=== PATIENT | female | born 1945 | race Hispanic/Latino ===

== ENCOUNTER 2021-10-23 10:08 | Emergency (ER) | payer OTHER ==
--- NOTE | 2021-10-23 11:26 | RAD REPORT ---
EXAM DESCRIPTION: CT - Head C Spine Mpr Wo Con - 10/23/2021 10:49 am CLINICAL HISTORY: Head and neck injury status post fall. Head and neck pain COMPARISON: None. TECHNIQUE: Computed axial tomography of the head and cervical spine was obtained. Sagittal and coronal reconstruction was performed. All CT scans are performed using dose optimization technique as appropriate and may include automated exposure control or mA/KV adjustment according to patient size. FINDINGS: An intracranial bleed is not seen. Mild low-density within periventricular, deep and subcortical white matter probably ischemic changes secondary to small vessel disease The ventricles are normal in caliber. An extra-axial fluid collection is not noted.Fluid within the v isualized sinuses and mastoids is not seen A cervical fracture is not visualized. No dislocation is noted. A minimal anterior subluxation C4 on C5. No soft tissue swelling seen. Mild compression fracture T2 vertebral body. A definite fracture line is not seen. IMPRESSION: No acute intracranial abnormality is seen. A cervical fracture is not visualized. Mild compression fracture T2 vertebral body probably is either subacute or chronic. If clinically ind icated further evaluation with MRI could be obtained.
--- NOTE | 2021-10-23 12:04 | EDPHYS ---
Physician Documentation [facility] Name: Ofe Brasher Age: 76 yrs Sex: Female : 1945 Arrival Date: 10/23/2021 Time: 10:13 Bed 17 Private MD: ED Physician Marcelo Mccloud HPI: 10/23 10:31 This 76 yrs old Female presents to ER via EMS with complaints of Fall Injury. jmm 10:31 Details of fall: The patient fell from an upright position. Onset: The symptoms/episode jmm began/occurred acutely, just prior to arrival. Associated injuries: The patient sustained injury to the head. It is unknown whether or not the patient has had similar symptoms in the past. Historical: - Allergies: 10:16 No Known Allergies; bp - PMHx: 10:16 Diabetes mellitus; Dementia; bp - Immunization history:: Adult Immunizations up to date. - Social history:: Smoking status: Patient denies any tobacco usage or history of. ROS: 10:31 Constitutional: Negative for fever, chills, and weight loss, Cardiovascular: Negative jmm for chest pain, palpitations, and edema, Respiratory: Negative for shortness of breath, cough, wheezing, and pleuritic chest pain. 10:31 Neuro: Positive for headache. 10:31 All other systems are negative. Exam: 10:31 Constitutional: This is a well developed, well nourished patient who is awake, alert, jmm and in no acute distress. 10:31 Eyes: EOMI, no conjunctival erythema appreciated ENT: Moist Mucus Membranes Neck: Trachea midline, Supple Chest/axilla: Normal chest wall appearance and motion. Cardiovascular: Regular rate and rhythm. No edema appreciated Respiratory: Normal respirations, no respiratory distress appreciated Abdomen/GI: Non distended Back: Normal ROM 10:31 Head/face: 1 cm laceration noted to the posterior scalp. 10:31 Skin: 1 cm laceration noted to the posterior scalp. 10:31 Neuro: Orientation: is normal, Mentation: is normal, Memory: is normal. 10:31 Psych: Behavior/mood is pleasant, cooperative. Vital Signs: 10:15 BP 150 / 70; Pulse 65; Resp 17; Temp 98; Pulse Ox 97% ; bp 10:54 BP 129 / 61; Pulse 74; Resp 16; Pulse Ox 100% ; bp 12:24 BP 134 / 72; Pulse 80; Resp 16; Pulse Ox 100% ; bp Laceration: 12:00 Wound Repair of 1cm ( 0.4in ) subcutaneous laceration to scalp. Distal jmm neuro/vascular/tendon intact. Anesthesia: Local anesthetic administered with 1% lidocaine. Wound prep: Simple cleansing by nurse. Skin closed with 2 1-0 Prolene using staple gun. MDM: 10:31 Patient medically screened. [facility] 12:00 Data reviewed: vital signs, nurses notes. [facility] 12:00 Counseling: I had a detailed discussion with the patient and/or guardian regarding: the [facility] historical points, exam findings, and any diagnostic results supporting the discharge/admit diagnosis, radiology results, the need for outpatient follow up, to return to the emergency department if symptoms worsen or persist or if there are any questions or concerns that arise at home. 10/23 10:34 Order name: CT Head C Spine; Complete Time: 11:27 [facility] 10/23 10:34 Order name: Wound Care; Complete Time: 12:24 [facility] Administered Medications: No medications were administered Disposition: 12:41 Co-signature as Attending Physician, Marcelo Mccloud MD I agree with the assessment and kdr plan of care. Disposition Summary: 10/23/21 12:04 Discharge Ordered Location: Home [facility] Condition: Stable [facility] Diagnosis - Fall on same level, unspecified jmm - Fracture of thoracic vertebra jmm - Unspecified injury of head, initial encounter jmm - Laceration without foreign body of scalp [facility] Followup: [facility] - With: Private Physician - When: 2 - 3 days - Reason: Recheck today's complaints, Continuance of care, Re-evaluation by your physician Discharge Instructions: - Discharge Summary Sheet jmm - Thoracic Spine Fracture jmm - Head Injury, Adult jmm - Facial Laceration [facility] Forms: - Medication Reconciliation Form jm - Thank You Letter jmm - Antibiotic Education jmm - Prescription Opioid Use [facility] Signatures: Dispatcher [employer] EDMarcelo Nicolas MD MD kdr Mickail, Joel, PA PA jmm Peltier, Brian, RN RN bp Corrections: (The following items were deleted from the chart) 10:17 10:16 Allergies: Tetanus Vaccines \T\ Toxoid; bp bp
--- NOTE | 2021-10-23 12:04 | ER ---
Nurse's Notes [facility] Name: Ofe Brasher Age: 76 yrs Sex: Female : 1945 Arrival Date: 10/23/2021 Time: 10:13 Bed 17 Private MD: Diagnosis: Fall on same level, unspecified;Fracture of thoracic vertebra;Unspecified injury of head, initial encounter;Laceration without foreign body of scalp Presentation: 10/23 10:15 Chief complaint: EMS states: SLIP AND FALL GOING TO BATHROOM AT HOME, NO LOC OR BLOOD bp THINNERS, 1 INCH LAC TO OCCIPUT. Coronavirus screen: At this time, the client does not indicate any symptoms associated with coronavirus-19. Ebola Screen: No symptoms or risks identified at this time. Initial Sepsis Screen: Does the patient meet any 2 criteria? No. Patient's initial sepsis screen is negative. Does the patient have a suspected source of infection? No. Patient's initial sepsis screen is negative. Risk Assessment: Do you want to hurt yourself or someone else? Patient reports no desire to harm self or others. Onset of symptoms was October 23, 2021 at 09:30. Care prior to arrival: Glucose check: 132. 10:15 Method Of Arrival: EMS: [facility] bp 10:15 Acuity: EBEN 3 bp Triage Assessment: 10:16 General: Appears in no apparent distress. comfortable, Behavior is calm, cooperative. bp Pain: Complains of pain in scalp. EENT: No deficits noted. Neuro: Level of Consciousness is awake, alert, obeys commands, Oriented to person, place, situation. Cardiovascular: No deficits noted. Respiratory: No deficits noted. GI: No signs and/or symptoms were reported involving the gastrointestinal system. : No signs and/or symptoms were reported regarding the genitourinary system. Derm: No deficits noted. Musculoskeletal: No deficits noted. Injury Description: Laceration sustained to scalp. Historical: - Allergies: 10:16 No Known Allergies; bp - PMHx: 10:16 Diabetes mellitus; Dementia; bp - Immunization history:: Adult Immunizations up to date. - Social history:: Smoking status: Patient denies any tobacco usage or history of. Screenin:17 Abuse screen: Denies threats or abuse. Denies injuries from another. Nutritional bp screening: No deficits noted. Tuberculosis screening: No symptoms or risk factors identified. Fall Risk None identified. Assessment: 10:17 General: SEE TRIAGE NOTE. bp 10:55 Reassessment: PT RETURNED FROM CT. bp 12:24 Reassessment: PT D/C HOME VIA W/C. bp Vital Signs: 10:15 BP 150 / 70; Pulse 65; Resp 17; Temp 98; Pulse Ox 97% ; bp 10:54 BP 129 / 61; Pulse 74; Resp 16; Pulse Ox 100% ; bp 12:24 BP 134 / 72; Pulse 80; Resp 16; Pulse Ox 100% ; bp ED Course: 10:13 Patient arrived in ED. bp 10:16 Triage completed. bp 10:16 Arm band placed on. bp 10:17 Patient has correct armband on for positive identification. Bed in low position. Call bp light in reach. Side rails up X2. Adult w/ patient. 10:20 Esau Clancy PA is PHCP. jade 10:20 Marcelo Mccloud MD is Attending Physician. jade 10:35 Joseph Mejia, MARLEY is Primary Nurse. bp 10:51 CT Head C Spine In Process Unspecified. EDMS 12:24 Assist provider with laceration repair on scalp that was 2.5 cm. or less using sohail. bp Performed by Esau NEWBERRY Dressed with Neosporin. Patient did not have IV access during this emergency room visit. Administered Medications: No medications were administered Medication: 10:17 VIS not applicable for this client. bp Outcome: 12:04 Discharge ordered by . jmm 12:24 Discharged to home via wheelchair, with family. bp 12:24 Condition: stable 12:24 Discharge instructions given to patient, family, Instructed on discharge instructions, follow up and referral plans. wound care, Demonstrated understanding of instructions, follow-up care, wound care. 12:25 Patient left the ED. bp Signatures: Dispatcher [employer] EDMS Esau Clancy PA PA jmm Peltier, Brian, RN RN bp Corrections: (The following items were deleted from the chart) 10:17 10:16 Allergies: Tetanus Vaccines \T\ Toxoid; bp bp
== END 2021-10-23 12:25 | disposition home or self-care (01) ==
LOC: ER 10:08
PROC: 0JQ00ZZ Repair Scalp Subcutaneous Tissue and Fascia, Open Approach (ICD-10-PCS; principal; 2021-10-23)
DX: S01.01XA Laceration without foreign body of scalp, initial encounter (principal); S22.029A Unspecified fracture of second thoracic vertebra, initial encounter for closed fracture; S09.90XA Unspecified injury of head, initial encounter; W18.30XA Fall on same level, unspecified, initial encounter; E11.9 Type 2 diabetes mellitus without complications; F03.90 Unspecified dementia, unspecified severity, without behavioral disturbance, psychotic disturbance, mood disturbance, and anxiety
CPT/HCPCS: 70450; 72125; 99283